=== PATIENT | male | born 1960 | race Caucasian/White ===

== ENCOUNTER 2020-08-04 01:15 | Emergency (ER) | payer BC ==
[~2020-08-04] VITALS: Ht 182.9 cm; Wt 108.9 kg
[2020-08-04 01:42] LABS: ABSOLUTE BASOPHILS 0.1 thou/uL (0.0-0.2); ABSOLUTE EOSINOPHILS 0.3 thou/uL (0.0-0.7); ABSOLUTE LYMPHOCYTES 2.1 thou/uL (0.8-5.3); ABSOLUTE MONOCYTES 0.6 thou/uL (0.0-1.2); ABSOLUTE NEUTROPHILS 3.8 thou/uL (1.6-8.1); EOSINOPHILS 3.7 %; HEMATOCRIT 46.5 % (42.0-52.0); HEMOGLOBIN 15.7 gm/dL (14.0-18.0); LYMPHOCYTES 31.1 %; MCH 30.1 pg (26.0-34.0); MCHC 33.7 g/dL (28.0-37.0); MCV 89.3 fL (80.0-100.0); MONOCYTES 8.9 %; MPV 7.1 fl. (7.2-11.1); NUCLEATED RBCS 0 /100WBC; PLATELET COUNT* 289 thou/uL (150-400); POLYS 55.3 %; RBC 5.21 mil/uL (4.50-6.00); RDW-CV 13.9 % (10.5-14.5); WBC 6.8 thou/uL (4.0-11.0)
[2020-08-04 01:48] LABS: CALCIUM 8.4 mg/dL (8.5-10.1); CREATININE 1.1 mg/dL (0.6-1.3); POTASSIUM 3.6 mmol/L (3.5-5.1)
[2020-08-04 01:52] LABS: ALBUMIN 3.7 g/dL (3.4-5.0); TOTAL BILIRUBIN 0.2 mg/dL (<0.1-1.0); TOTAL PROTEIN 7.2 g/dL (6.4-8.2)
[2020-08-04 01:53] LABS: APTT 26.8 Seconds (25.0-31.3); PROTIME 10.3 Seconds (9.20-11.50)
[2020-08-04] MEDS ORDERED: ZESTRIL10 MG PO (01:57)
[2020-08-04] MEDS ORDERED: HYDROCHLOROTH12.5 M1 PO (01:57)
[2020-08-04 02:25] VITALS: BP 172/94
--- NOTE | 2020-08-04 10:30 | EKG ---
[place] [address] ELECTROCARDIOGRAM REPORT Name: JOSE LAGUERRE Room: [facility]#: [id number] Admission: 08/04/20 Attend Phys: Discharge: 08/04/20 Date of : 60 Date of Service: 08/04/20 0120 Report #: [id number] THIS REPORT FOR: //name// [facility] ED Test Date: 2020-08-04 Test Time: 01:20:40 Pat Name: JOSE LAGUERRE Department: Room: Gender: [employer] Superintendent: LOGAN : 1960 Requested By: Nata Jalloh Order Number: [id number] MD: David Irwin Measurements Intervals [place] Rate: 87 P: 59 MS: 151 QRS: 11 QRSD: 99 T: 65 QT: 363 QTc: 437 Interpretive Statements Sinus rhythm Probable left atrial enlargement No previous ECG available for comparison Electronically Signed On 08-04-2020 10:30:43 A/C TECHNICIAN by David Irwin [email or web address] <ELECTRONICALLY SIGNED> By: David Irwin MD, [facility] 08/04/20 1030 0120 0120 David Irwin MD, FACC /EPI
== END 2020-08-04 02:25 | disposition home or self-care (01) ==
LOC: M.ERS 01:15
PROVIDERS: Personal Emergency Response Attendant
DX: I16.0 Hypertensive urgency (principal); I10 Essential (primary) hypertension

== ENCOUNTER → 2020-10-29 | Day surgery (SDC) | payer BC ==
[~2020-10-29] MED LIST: HYDROCHLOROTH12.5 M1 PO; ZESTRIL10 MG PO
--- NOTE | ~2020-10-29 | OP ---
[address] [address] OPERATIVE REPORT Name: JOSE LAGUERRE Room: [facility]#: [id number] Admission: 10/29/20 Attend Phys: Walt Sierra DO Discharge: Date of : 60 Report #: [id number] THIS REPORT FOR: cc: Jo Saunders Mohammad K. DO Kramer, Adam P. DO ~ DOC #: [id number] Walt Sierra DO DATE OF SURGERY: 10/29/2020 PREOPERATIVE DIAGNOSIS: Bilateral inguinal hernias. POSTOPERATIVE DIAGNOSIS: Only left indirect inguinal hernia. PROCEDURE PERFORMED: Da Mary robotic-assisted laparoscopic left inguinal hernia repair with Bard 3D mid weight mesh measuring 10 x 16 cm. SURGEON: Walt Sierra DO. APARTMENT MAINTENANCE MANAGER: Gaudencio Keith DO ANESTHESIA: General endotracheal and TAP blocks. ESTIMATED BLOOD LOSS: Less than 20 mL COMPLICATIONS: None. DESCRIPTION OF PROCEDURE: After obtaining proper consents and discussing risks and complications with the patient, he was taken to the operating room, laid in the supine position and administered general endotracheal anesthetic. He was then prepped and draped in the usual sterile fashion. A timeout was performed. We confirmed the appropriate patient and procedure. Preoperative antibiotics had been given. A TAP blocks were performed by anesthesia as well. We then prepped and draped the patient in the usual sterile fashion. A small supraumbilical skin incision was made with a #11 scalpel blade. This was carried down through the skin and the subcutaneous tissue using electrocautery for hemostasis. Once the fascia was encountered, it was incised along the midline, grasped and elevated with Debora clamps and the peritoneum was then bluntly opened using a hemostat. We then placed 2-0 Vicryl sutures in a [id number] fashion to secure the da Mary camera port, which was then inserted and insufflation was begun. Once insufflation was complete, full visual inspection of the intraabdominal organs was performed. This revealed a fairly large left indirect inguinal hernia, which contained a portion of the sigmoid colon. The right side did not appear to have any hernia at all and I checked this in multiple different times. We also placed the patient in a fairly steep Trendelenburg position in order [place] [address] OPERATIVE REPORT Name: JOSE LAGUERRE Room: [facility].#: [id number] Admission: 10/29/20 Attend Phys: Walt Sierra DO Discharge: Date of : 60 Report #: [id number] inguinal region and found that there was only a hernia on the left and not on the right. I then placed 2 more 8.5 mm da Mary ports, one in the right upper quadrant, one in the left upper quadrant. We then docked the da Mary robot and inserted bipolar fenestrated grasper in the left upper quadrant and monopolar scissors in the right upper quadrant. I then broke scrub and went on console. Once on console, I was able to take down the adhesions of the sigmoid colon, which were within the hernia sac. I still stayed well away from the colon itself and stayed just around the epiploic appendages. I also used blunt dissection for the majority of this and especially anywhere where it was close to the colon itself. Once this was all reduced, I then opened the peritoneum from medial umbilical ligament laterally to the ASIS. The preperitoneal space was then developed all the way down below the pubic ramus and extending out laterally. I was easily able to reduce the indirect inguinal hernia sac and dissect that free. I did check for direct hernia. I also checked for a cord lipoma and found none. Once the entire area was dissected free, I then placed a 10 x 16 cm Bard 3D mid weight mesh. This was sutured in place to Isra's ligament and then medial and lateral to the inferior epigastric vessels using 2-0 Vicryl suture. I then closed the peritoneal flap using a running 2-0 absorbable V-Loc suture. We then removed the needles. I rescrubbed and went back to the patient's bedside. We undocked the da Mary robot. The trocars were all removed. The umbilical fascia was then closed using the 2 previously placed 0 Vicryl sutures plus 2 additional 0 Vicryl suture. Skin incisions were all closed using 4-0 Monocryl subcuticular stitches and Dermabond. The patient was awakened in the operating room and transported to recovery room in stable condition. Sponge, needle and instrument counts were all correct at the end of the procedure. Walt Sierra DO APWil[facility] [place] By: [id number] Sierra DO /nt
[2020-10-29 09:49] LABS: HEMATOCRIT 45.8 % (42.0-52.0); HEMOGLOBIN 15.6 gm/dL (14.0-18.0); MCH 30.7 pg (26.0-34.0); MCHC 34.1 g/dL (28.0-37.0); MCV 89.8 fL (80.0-100.0); MPV 7.2 fl. (7.2-11.1); RBC 5.1 mil/uL (4.50-6.00); RDW-CV 13.7 % (10.5-14.5); WBC 6.2 thou/uL (4.0-11.0)
[2020-10-29 10:04] LABS: CALCIUM 9.2 mg/dL (8.5-10.1); CREATININE 0.9 mg/dL (0.6-1.3); POTASSIUM 4.4 mmol/L (3.5-5.1)
== END | disposition home or self-care (01) ==
LOC: M.SUR 05:27
PROVIDERS: Anesthesiology; ATTEND Surgery
DX: K40.30 Unilateral inguinal hernia, with obstruction, without gangrene, not specified as recurrent (principal); I10 Essential (primary) hypertension; Z98.890 Other specified postprocedural states; Z79.899 Other long term (current) drug therapy; Z20.822 Contact with and (suspected) exposure to COVID-19; Z87.891 Personal history of nicotine dependence